=== PATIENT | male | born 1935 | race Caucasian/White ===

== ENCOUNTER 2019-08-01 15:43 | Inpatient (IN) ==
--- NOTE | 2019-08-01 16:43 | EKG Report ---
Test Performed on : 08/01/2019 3:54:41 PM Test Reason : Stroke like symptoms Blood Pressure : / mmHG Vent. Rate : 083 BPM Atrial Rate : 083 BPM P-R Int : 262 ms QRS Dur : 074 ms QT Int : 330 ms P-R-T Axes : 079 057 055 degrees QTc Int : 387 ms Sinus rhythm. with 1st degree AV block. Otherwise normal ECG When compared with ECG of 11-AUG-2015 13:02, No significant change was found Unconfirmed Result
[2019-08-01 16:44] LABS: BASO# 0.04 X1000 (0.0-0.2); BASO% 0.5 % (0.0-0.8); EOS# 0.07 X1000 (0.0-0.7); EOS% 0.8 % (0.0-10.0); HEMOGLOBIN 10.3 g/dL (14.0-18.0); LYMPH# 3.04 X1000 (1.2-3.4); LYMPH% 36.2 % (20.5-51.1); MCH 26.8 PG (27-31); MCHC 32.2 g/dL (33-37); MCV 83.3 FL (81-99); MONO# 0.55 X1000 (0.11-0.59); MONO% 6.6 % (1.7-9.3); MPV 9.8 FL (7.4-10.4); NEUT# 4.69 X1000 (1.4-6.5); NEUT% 55.9 % (42.2-75.2); PLT 192 X1000 (130-400); RBC 3.84 XMIL (4.7-6.1); RDW 12.9 % (11.5-14.5); WBC 8.39 X1000 (4.8-10.8)
[2019-08-01 16:48] LABS: PROTIME 13.3 Seconds (11.0-16.0); PTT 29.1 Seconds (22.3-41.8)
--- NOTE | 2019-08-01 16:53 | Diag Imaging Result Doc PS360 ---
CHEST-PORTABLE - 08/01/2019 INDICATION: stroke like symptoms COMPARISON: 08/10/2015 FINDINGS: The lungs are normally expanded and clear. Heart size and mediastinal contours are normal. No pneumothorax or pleural effusion. IMPRESSION: Negative exam. Electronically signed by Chris Lennon 08/01/2019 4:50 PM
--- NOTE | 2019-08-01 16:54 | Diag Imaging Result Doc PS360 ---
CT HEAD W/O CONTRAST - 08/01/2019 INDICATION: stroke like symptoms COMPARISON: 08/10/2015 FINDINGS: Since the prior exam, there has been significant worsening in the periventricular white matter chronic microvascular ischemia. No intracranial mass or hemorrhage. The ventricles and sulci are normal in size and contour. The skull is intact. The sinuses, mastoids, and middle ears are clear. IMPRESSION: Worsening chronic microvascular ischemia. No acute process. This exam was performed using automated exposure control, adjustment of mA or kV according to patient size, and/or use of iterative reconstruction technique Electronically signed by Chris Lennon 08/01/2019 4:52 PM
[2019-08-01 17:04] LABS: ALB/GLOB RATIO 1.9; ALBUMIN 4.7 g/dL (3.5-5.0); CALCIUM 9.7 mg/dL (8.8-10.2); CREATININE 1.3 mg/dL (0.7-1.2); POTASSIUM 4.9 mmol/L (3.5-5.1); TOTAL BILIRUBIN 0.27 mg/dL (0.20-1.00); TOTAL PROTEIN 7.2 g/dL (6.3-8.3)
[2019-08-01] MEDS ORDERED: NS 500 ML IV ONE (17:39)
[2019-08-01 18:02] LABS: URINE SOURCE CLEAN CATCH
[2019-08-01 18:07] LABS: BILIRUBIN URINE NEGATIVE (NEGATIVE); BLOOD URINE NEGATIVE (NEGATIVE); COLOR YELLOW; GLUCOSE URINE NEGATIVE (NEGATIVE); KETONE URINE NEGATIVE (NEGATIVE); LEUKOCYTES URINE NEGATIVE (NEGATIVE); NITRITE URINE NEGATIVE (NEGATIVE); PH URINE 6.5; PROTEIN URINE NEGATIVE (NEGATIVE); SP GRAVITY URINE 1.014; TURBIDITY URINE CLEAR (CLEAR); UROBILINOGEN URINE NORMAL (NORMAL)
[2019-08-01 18:09] LABS: UR EPITHELIAL CELLS <10 /HPF (<10); URINE BACTERIA NEGATIVE /HPF; URINE RBC <10 /HPF (<10); URINE WBC <10 /HPF (<10)
--- NOTE | 2019-08-01 18:16 | PROVIDER DOCUMENTATION ---
This chart was entered by Carolin Goodman Scribe, acting as scribe for Chavez Asif MD. HPI-Neurological Disorder - General Chief Complaint: Stroke-Like Symptoms Stated Complaint: "TINGLE" FAMILY THINKS STROKE SYMPTOMS Time Seen by Provider: 08/01/19 16:08 Source: patient, family Allergies/Adverse Reactions: Patient Allergies Allergy/AdvReac Type Severity Reaction Status Date / Time No Known Allergies Allergy Verified 08/10/15 10:40 Home Medications: Home Medication List Medication Instructions Recorded Confirmed Last Taken Type Losartan Potassium [Cozaar] 100 mg PO DAILY 08/10/15 08/10/15 08/09/15 History Metformin E.r. 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 pt vomited x 3 the past 2 hrs. 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 pt sts has had tingling and humbness in hands 3-4 yrs ago. pt has no cardiac hx. sx back. pt rx plavix, zocor, zoloft and losartan 100mg. pt sts no pain. pt has hx of dm and htn. pt followed by Dr. russo. Onset/Duration: reports: 1-3 hours ago Timing: reports: intermittent Context: reports: impaired speech Character of Altered Mental Status: reports: N/A Any recent trauma/injury?: reports: none Character of Deficits: reports: altered sensation (numbness, tingling bilat hands) New weakness or altered sensation location:: reports: CHRISTINEJuan Jose SONY Cognitive Baseline: alert, oriented x3 Associated Symptoms: reports: vomiting Similar Symptoms Previously?: Yes (3-4 yrs ago ) Review of Systems - Adult - REVIEW OF SYSTEMS - ADULT Constitutional: reports: no symptoms reported. denies: chills, fatique, night sweats Eyes: reports: no symptoms reported Ears, Nose, Mouth & Throat: reports: no symptoms reported Cardiovascular: reports: no symptoms reported Respiratory: reports: no symptoms reported Gastrointestinal: reports: see HPI, vomiting. denies: abdominal pain, diarrhea, difficulty swallowing, nausea Genitourinary: reports: no symptoms reported Musculoskeletal: reports: no symptoms reported Integumentary: reports: no symptoms reported Neurological: reports: no symptoms reported, numbness (bilat hands), paresthesia (bilat hands), slurred speech, tremors. denies: loss of balance, seizure, syncope Psychiatric: reports: no symptoms reported Endocrine: reports: no symptoms reported Hematologic/Lymphatic: reports: no symptoms reported Allergic/Immunologic: reports: no symptoms reported All Other Systems: Reviewed and Negative Past History - Adult - PAST MEDICAL HISTORY-ADULT Review of Records: reports: Nursing Assessment Review, Medications Reviewed, Social history reviewed & non-contributory. Major Childhood Illnesses: reports: denies history Cardiovascular: reports: HTN, hyperlipidemia Respiratory: reports: denies history Gastrointestinal: reports: denies history Obstetrical/Gynecological: reports: denies history Genitourinary: reports: denies history Musculoskeletal: reports: denies history Neurological: reports: denies history Endocrine/Immune: reports: Diabetes Other Conditions: reports: denies history - PRIOR SURGERIES/PROCEDURES Surgical/Procedure History: reports: back/neck - IMMUNIZATION STATUS Childhood Immunizations: See Nurse Assessment Flu Vaccine: See Nurse Assessment - FAMILY HISTORY Family History: reviewed, not pertinent - SOCIAL HISTORY Smoking: non-smoker Substance Use: none/never Physical Exam- Neurological - Physical Exam-Neuro Initial Vital Signs Reviewed: Yes General Appearance: appears well, alert, no apparent distress. negative: lethargic, slow to respond, obtunded, combative Eye Exam: bilateral eye: normal inspection, PERRL, EOMI HENMT: normocephalic/atraumatic, moist mucous membranes, normal ENT inspection Head Injury: no evidence of injury Neck: non-tender, full range of motion, supple, normal inspection Respiratory: chest non-tender, lungs clear, normal breath sounds Cardiovascular: normal peripheral pulses, regular rate, rhythm Abdominal Exam: normal bowel sounds, non tender, soft Lymphatic: no adenopathy Peripheral Pulses: radial (R): 2+, radial (L): 2+ Extremity: normal range of motion, non-tender, normal inspection pathologist Exam: normal hearing, normal speech, PERRL. negative: facial asymmetry, facial droop, facial paresthesias, facial weakness, gaze palsy Motor/Sensory: no motor deficit, no sensory deficit, no pronator drift Neurologic: pathologist II-XII nml as tested, grossly normal, no motor/sensory deficits. negative: abnormal pathologist II-XII, aphasia, EOM palsy, facial droop, motor wea kness Integumentary: normal color, normal turgor, warm/dry Psych/Mental Status: normal mood/affect, normal thought content, normal thought process, oriented x 3 - Glascow Coma Scale Best Eye Response: (4) open spontaneously Best Verbal Response: (5) oriented Best Motor Response: (6) obeys commands Total Glascow Score: 15 Progress - PLAN OF CARE/RESULTS Progress/Plan/Lab Results: Vital Signs - 8 hr 08/01/19 15:47 Temperature 97.6 F Pulse Rate 75 Respiratory Rate 16 Blood Pressure 155/74 O2 Sat by Pulse Oximetry 97 Laboratory Results - last 24 hr 08/01/19 08/01/19 08/01/19 16:00 16:08 16:08 WBC 8.39 RBC 3.84 L Hgb 10.3 L Hct 32.0 L MCV 83.3 MCH 26.8 L MCHC 32.2 L RDW Std Deviation 12.9 Plt Count 192 MPV 9.8 Immature Gran % (Auto) 0.0 Neut % (Auto) 55.9 Lymph % (Auto) 36.2 Jack % (Auto) 6.6 Eos % (Auto) 0.8 Baso % (Auto) 0.5 Immature Gran # (Auto) 0.00 Neut # (Auto) 4.69 Lymph # (Auto) 3.04 Jack # (Auto) 0.55 Eos # (Auto) 0.07 Baso # (Auto) 0.04 PT INR PTT (Actin FS) Sodium 127 L Potassium 4.9 Chloride 90 L Carbon Dioxide 24 L Anion Gap 13 BUN 20 Creatinine 1.3 H Estimated GFR/1.73 m2 53 BUN/Creatinine Ratio 15 Glucose 159 H POC Glucose 163 H Calculated Osmolality 261 Calcium 9.7 Total Bilirubin 0.27 AST 16 ALT 12 Alkaline Phosphatase 54 Troponin T Total Protein 7.2 Albumin 4.7 Globulin 2.5 Albumin/Globulin Ratio 1.9 Urine Source Urine Color Urine Turbidity Urine pH Ur Specific Sims Urine Protein Ur Glucose (Stick) Ur Ketones (Stick) Urine Blood Urine Nitrite Urine Bilirubin Urobilinogen Dipstick Urine Leukocytes Urine WBC (Auto) Urine RBC (Auto) U Epithel Cells (Auto) Urine Bacteria (Auto) 08/01/19 08/01/19 08/01/19 16:08 16:08 17:52 WBC RBC Hgb Hct MCV MCH MCHC RDW Std Deviation Plt Count MPV Immature Gran % (Auto) Neut % (Auto) Lymph % (Auto) Jack % (Auto) Eos % (Auto) Baso % (Auto) Immature Gran # (Auto) Neut # (Auto) Lymph # (Auto) Jack # (Auto) Eos # (Auto) Baso # (Auto) PT 13.3 INR 1.00 PTT (Actin FS) 29.1 Sodium Potassium Chloride Carbon Dioxide Anion Gap BUN Creatinine Estimated GFR/1.73 m2 BUN/Creatinine Ratio Glucose POC Glucose Calculated Osmolality Calcium Total Bilirubin AST ALT Alkaline Phosphatase Troponin T < 0.010 Total Protein Albumin Globulin Albumin/Globulin Ratio Urine Source CLEAN CATCH Urine Color YELLOW Urine Turbidity CLEAR Urine pH 6.5 Ur Specific Sims 1.014 Urine Protein NEGATIVE Ur Glucose (Stick) NEGATIVE Ur Ketones (Stick) NEGATIVE Urine Blood NEGATIVE Urine Nitrite NEGATIVE Urine Bilirubin NEGATIVE Urobilinogen Dipstick NORMAL Urine Leukocytes NEGATIVE Urine WBC (Auto) <10 Urine RBC (Auto) <10 U Epithel Cells (Auto) <10 Urine Bacteria (Auto) NEGATIVE Orders Category Date Time Status Cardiac Monitoring DIRECTED Care 08/01/19 16:18 Active Finger Stick Blood Sugar (ED) DIRECTED Care 08/01/19 16:18 Active Misc. NRSG Communication Order DIRECTED Care 08/01/19 16:18 Active Saline Loc NOW Care 08/01/19 16:18 Active CHEST-PORTABLE [RAD] Stat Exams 08/01/19 16:[address] HEAD W/O CONTRAST [CT] Stat Exams 08/01/19 16:18 Completed CBC WITH ELECTRONIC DIFF [HEME] Stat Lab 08/01/19 16:08 Completed COMPREHENSIVE METABOLIC PANEL [CHEM] Stat Lab 08/01/19 16:08 Completed PROTIME WITH INR [COAG] Stat Lab 08/01/19 16:08 Completed PTT [COAG] Stat Lab 08/01/19 16:08 Completed TROPONIN T Stat Lab 08/01/19 16:08 Completed URINALYSIS W/POSS RFLX CULT [URINALYSIS] Stat Lab 08/01/19 17:52 Completed URINE DRUG SCREEN Stat Lab 08/01/19 17:52 Received 0.9% Sodium Chloride Inj [Ns] 500 ml Med 08/01/19 17:39 Discontinued IV 999 mls/hr EKG [EKG] Stat Ther 08/01/19 16:18 Draft Result Diagrams: 08/01/19 16:08 08/01/19 16:08 - EKG 1 Time of EKG reading by physician:: 16:18 EKG Read and Signed by:: Chavez Asif EKG Interpretation (*Must complete 3 of following elements*): Normal Rate: 83 Rhythm: SR w/1st degree AV block [place]: normal QRS: normal NV Interval: prolonged ST Wave: normal - CONSULTS/PCP/HOSPITALIST Notification #1 *Consult/PCP/Hospitalist*: Dr. Persaud for Dr. Russo Time Discussed: 18:15 Consult Disposition: Will see in ED, Admit Departure - Departure Date of Disposition Decision: 08/01/19 Time of Disposition Decision: 18:15 DIAGNOSIS: TIA (transient ischemic attack), Hyponatremia Disposition: ADMITTED INPATIENT 09 Certified Medical Emergency: Emergent Condition: Good Referrals and Follow-Ups: Steve Russo MD [Primary Care Provider] - - Critical Care Note This patient required my direct & personal management of CC.: No Attestation - Physician/ GLORY Attestation Patient care was provided by Advanced Practice Provider:: No The physician spent face to face time with patient:: Yes Advanced Practice Provider documentation review:: Supervising physician onsite and consulted in the evaluation and care of this patient. The physician did have a face to face encounter with the patient. This chart was documented by the indicated scribe, (Carolin Goodman Scribe) and accurately reflects the services I performed and decisions made by me, Chavez Asif MD, as attested by the provider's signature.
[2019-08-01 18:19] LABS: UR AMPHETAMINES QUAL NONE DETECTED (NONE DETECT); UR BARBITUATES QUAL NONE DETECTED (NONE DETECT); UR BENZODIAZEPIN QUAL NONE DETECTED (NONE DETECT); UR CANNABINOIDS QUAL NONE DETECTED (NONE DETECT); UR COCAINE QUAL NONE DETECTED (NONE DETECT); UR METHADONE QUAL NONE DETECTED (NONE DETECT); UR OPIATES QUAL NONE DETECTED (NONE DETECT); UR OXYCODONE QUAL NONE DETECTED (NONE DETECT); UR PCP QUAL NONE DETECTED (NONE DETECT)
[2019-08-01 18:57] LABS: RETIC% 0.86 % (0.8-2.1); RETIC-HE 29.4 PG (28.2-36.6)
[2019-08-01 19:06] LABS: IRON SATURATION 7 %; TIBC 356 ug/dL; TOTAL IRON 24 ug/dL (53-167); UNBOUND IRON 332 ug/dL (112-346)
[2019-08-01] MEDS ORDERED: TYLENOL PO PRN (20:23)
[2019-08-01] MEDS ORDERED: NS 1,000 ML IV ONE (20:23)
[2019-08-01] MEDS ORDERED: ZOFRAN IV PRN (20:23)
--- NOTE | 2019-08-01 21:14 | HISTORY AND PHYSICAL ---
CHIEF COMPLAINT: Possible stroke. HISTORY OF PRESENT ILLNESS: The patient is an 84-year-old white male who had an episode that lasted just under an hour where he had weakness and loss of control of his right arm, altered mental status, difficulty speaking, and numbness of the right lower face. He had a similar instance about 4 years ago and had a workup for stroke at that time. He has had carotid flow studies done, he thinks just a few months ago, that were essentially normal, but is supposed to have it repeated in a few months as well. We will have to look up the actual results. PAST MEDICAL HISTORY: Includes: 1. Hyperlipidemia. 2. Diabetes mellitus. Looking back at old records, he has had diabetes type 2 since 1998 3. Hypertension. 4. Hearing problems. 5. GERD. 6. Diabetic neuropathy. 7. Erectile dysfunction. 8. Hypercholesterolemia. 9. Diabetic retinopathy. 10. In 2014, he was admitted and he was on glipizide XL 2.5 mg daily with breakfast, metformin 1000 mg p.o. b.i.d., Zocor 20 mg daily, losartan 100 mg daily, and apparently came in with confusion at that time, and had some numbness and tingling to the left hand instead of to the right as he did today. He was on 81 mg of aspirin at that time. 11. Looking back in 2014 at the discharge summary, he had moderate right carotid stenosis with a 40 to 59 percent blockage. MEDICATION LIST: Includes: 1. Simvastatin. 2. Losartan. 3. Plavix. 4. Aspirin. 5. Zoloft for depression. 6. Diabetic medicine that sounds like it may be metformin 1000 mg twice daily. Family members did not bring that with him. He has a nephew that is here with him. ALLERGIES: The patient has no known allergies. SOCIAL HISTORY: He has had 3 children. One has . Apparently one he is not aware of and another one that lives in [place]. A nephew is here with him. He does not use alcohol. He had only a 4 pack year history of smoking; quit in 1959. PAST SURGICAL HISTORY: 1. He has had cataract surgery in the past. 2. He has had back surgery in the past. Apparently, he had a spur. REVIEW OF SYSTEMS: Neurological: Denies headaches, seizures, visual problems. Does wear hearing aids. Pulmonary: Denies cough, wheezing, dyspnea. Cardiovascular: Denies chest pain, heart palpitations, PND, orthopnea. GI: Denies hematochezia, hematemesis, melena, constipation, or diarrhea; however, he had told the ER physician earlier that he had nausea and threw up, and he told me he had diarrhea. His nephew says he has been confused. Endocrine: Does have diabetes. Rest of the review of systems is essentially normal. PHYSICAL EXAMINATION: VITAL SIGNS: Blood pressure is 155/74, respirations 16, pulse 75, temperature 97.6 degrees Fahrenheit. HEENT: Normocephalic. EOMs intact. PERRLA. Throat clear. LUNGS: Clear to auscultation and percussion without rhonchi, rales, or wheezes. HEART: Regular rate and rhythm without murmurs, gallops, or friction rubs. EKG was essentially normal. ABDOMEN: Soft with active bowel sounds. No organomegaly or tenderness. NEUROLOGICAL: Cranial nerves 2 through 12 intact grossly except for decreased hearing. Reflexes 1+ all. He has good strength and sensation over the entire body at this time. It should be noted that I found the carotid flow study report from March of this year, and he does have bilateral carotid disease, worse on the right side than the left. Apparently, the patient told the emergency room physician initially that he had bilateral hand numbness, tingling, and tremors. He told me it was on the right side. He has been under a good bit of stress recently as his not long ago. LABORATORY: White count of 8390, hemoglobin is a little low at 10.3, hematocrit 32. Sodium was a little low at 127 which could be from throwing up or having diarrhea. Chloride was a little low at 90. CO2 was 24, creatinine 1.3, BUN 20, glucose 159. ASSESSMENT: 1. Transient ischemic attack. 2. Diabetes mellitus. 3. 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 4. Hypertension. 5. Depression. 6. Gastroesophageal reflux disease. PLAN: We will admit and observe. He is already on Plavix and will continue that. Please see orders. cc: Richie Persaud Jr, MD
[2019-08-01] MEDS: ZOCOR PO SCH (22:26)
[2019-08-02] MEDS: PLAVIX PO SCH (10:17)
[2019-08-02] MEDS: COZAAR PO SCH (10:17)
[2019-08-02] MEDS: ASPIRIN PO SCH (10:17)
--- NOTE | 2019-08-02 13:02 | PROGRESS NOTE ---
DATE: 08/02/2019 SUBJECTIVE: The patient relates he had less than 1 hour history of weakness and numbness in his right hand and arm making it difficult to put his car in park when he was at home. He remains on aspirin 325 mg daily and Plavix 75 mg daily, longstanding, and is followed by Dr. Cornell Pedroza for pronounced right carotid stenosis. Last visit with Dr. Pedroza was 03/29/2019 with plans to follow him up in 6 months. He has been approaching need for right carotid endarterectomy. Patient is without any symptoms or difficulties this morning. OBJECTIVE: Vital signs: Afebrile, pulse 66, respirations 22, blood pressure 121/56, O2 saturation on room air 100%. Neurologic: Cranial nerves 2-12 are intact. Minor word-finding difficulties which seem to be at his baseline. No weakness in his rehab trainer or weakness in his arms or legs can be identified. History of prior TIA in July 2015 noted. Cardiovascular: Regular rate and rhythm without distinct murmur. Neck: No major bruits. Lungs: Clear to auscultation. Distant breath sounds. Extremities: No calf tenderness, cords or edema. LABORATORY DATA: White count 8.3, hemoglobin is low at 10.3, platelets 192,000. He is iron deficient. PT and PTT are normal. Creatinine 1.3, sodium 127, potassium 4.9. Urine drug screen negative. Urinalysis negative. EKG: Normal sinus rhythm with first-degree AV block, unchanged. ASSESSMENT: 1. Transient ischemic attack. This is his 2nd one in the past 5 years. 2. Pronounced right carotid stenosis, followed by Dr. Cornell Pedroza. 3. Type 2 diabetes mellitus with A1c 6.4 on 07/25/2019. 4. Hypercholesterolemia with last LDL of 75 back just over a year ago. 5. Iron deficiency anemia, which is new with last colonoscopy revealing [address] Matthew, May 2016. 6. Diabetic neuropathy. 7. Diabetic retinopathy. 8. History of gastroesophageal reflux disease and peptic ulcer disease dating back to 1998 without particular symptoms now. PLAN: Continue aspirin 325 mg daily and daily Plavix. We will check Hemoccult. Again, we will ask Dr. Pedroza to see again regarding his carotid stenosis. We will continue his Zocor he is on. We will monitor Accu-Cheks, leaving him off of his metformin at this time. We will go ahead and place him on PPI orally due to remote history of peptic ulcer disease and his recent anemia. cc: MD Richie Henderson Jr, MD
--- NOTE | 2019-08-02 15:14 | GENERAL SURGERY CONSULTATION ---
DATE: 08/02/2019 REASON FOR CONSULTATION: TIA, carotid stenosis. HISTORY OF PRESENT ILLNESS: This is an 84-year-old male known to Dr. Pedroza with right carotid stenosis of 60 to 79 percent. He has had a previous TIA affecting his left side a few years ago. Apparently yesterday he had an episode of tingling and numbness and weakness of his right arm with some difficulty speaking and drooping of his right face. Those symptoms lasted about an hour and then subsided and have not returned since yesterday. He denies any weakness of his legs, headache or other systemic complaints at this time. PAST MEDICAL HISTORY: Carotid artery stenosis, hyperlipidemia, diabetes, hypertension, gastroesophageal reflux disease, hypercholesterolemia. ALLERGIES: No known drug allergies. HOME MEDICATIONS: Simvastatin, losartan, Plavix, aspirin, Zoloft, metformin. SOCIAL HISTORY: Negative for tobacco, alcohol or illicit drug use. FAMILY HISTORY: Reviewed and noncontributory. PAST SURGICAL HISTORY: Reviewed and noncontributory. REVIEW OF SYSTEMS: Ten systems reviewed and negative except as noted above. PHYSICAL EXAMINATION: Vital Signs: Temperature 98.3 degrees, pulse 66, respirations 22, blood pressure 121/56, O2 saturation 100%. General: Well-developed elderly male in no distress who looks stated age. HEENT: Normocephalic, atraumatic. Extraocular muscles intact. Pupils equal, round, reactive to light. Sclerae anicteric. Moist mucous membranes. Neurologic: Cranial nerves 2-12 are intact. He has 5/5 strength throughout both upper and lower extremities. Extremities: No clubbing, cyanosis, or edema. Skin: Warm and dry. No rash. Musculoskeletal: Moves all extremities equally and well. GI: Soft, nontender, nondistended. No organomegaly or mass. CV: Regular rate and rhythm. Respiratory: Bilateral equal breath sounds. No work of breathing. LABORATORY: CBC and metabolic profile reviewed and notable for a sodium of 127. Urinalysis negative. Urine drug screen negative. IMAGING: CT of the head showed worsening chronic microvascular ischemia. ASSESSMENT/PLAN: 84-year-old male with neurologic changes yesterday concerning for transient ischemic attack. However, it did present a mixed picture with right arm weakness and numbness as well as right facial droop and speech difficulties. He has known carotid artery stenosis involving the right side, but the left side was free of any significant disease in March of this year. At this point, he is not having crescendo transient ischemic attack or acute stroke and I would recommend short-term followup with Dr. Pedroza for further evaluation and treatment. cc: MD Richie Antunez Jr, MD
[2019-08-02 20:12] VITALS: BP 135/60
[2019-08-02] MEDS: ZOCOR PO SCH (21:42)
[2019-08-03] MEDS ORDERED: PROTONIX PO SCH (07:00)
[2019-08-03] MEDS: COZAAR PO SCH (08:42)
[2019-08-03] MEDS: PLAVIX PO SCH (08:43)
[2019-08-03] MEDS: ASPIRIN PO SCH (08:43)
--- NOTE | 2019-08-03 09:01 | PROGRESS NOTE ---
DATE: 08/03/2019 SUBJECTIVE: The patient is doing well. No further signs of neurological deficit at all. OBJECTIVE: Afebrile. Vital signs stable.CV: RRR. No murmur. Lungs: CTA. Extremities: No edema. DTRs are equal. Good chief enterprise architect strength is equal and normal. Neurologic: Cranial nerves 2-12 are intact. No confusion. No word finding difficulties other than his baseline personality. ASSESSMENT: 1. Transient ischemic attack. 2. Pronounced right carotid stenosis. 3. Hyponatremia. 4. Type 2 diabetes mellitus, controlled with A1c 6.4 in the office on 07/25/2019. 5. Hypercholesterolemia, controlled on Zocor. 6. Mild iron deficiency anemia with last colonoscopy revealing [address] Matthew in May of 2016. 7. Diabetic neuropathy. 8. Diabetic retinopathy. 9. History of GERD and peptic ulcer disease dating back to 1998 without symptoms currently. PLAN: Dr. Carrillo evaluated the patient. From a surgical standpoint, did not feel like he needed acute surgical treatment for his carotid stenosis. We will continue his home medications to include a full dose of aspirin and Plavix 75 mg daily. Otherwise, continue his other medications of losartan, full dose metformin, and Zocor. He will follow up in my office in 1 week. He will follow up with Dr. Pedroza within 1 week. We will check outpatient echocardiogram in the office. We will plan on repeating a BMP to look at his sodium again. We will also check CBC at that time regarding the anemia and iron studies. We will give him a Hemoccult kit outpatient, and consider repeat GI workup outpatient. cc: MD Richie Henderson Jr, MD
== END 2019-08-03 10:05 | disposition home or self-care (01) | DRG 69 ==
LOC: ED 15:43 → 3N 19:50
PROVIDERS: ADMIT Emergency Medicine; ATTEND Family Medicine